=== PATIENT | female | born 1930 | race Hispanic/Latino ===

== ENCOUNTER 2017-01-22 17:35 | Inpatient (IN) | payer MEDICARE, MEDICAID ==
[2017-01-22] MEDS ORDERED: Fentanyl 100 MCG/2 ML VIAL ONE (18:52)
[2017-01-22] MEDS ORDERED: Dextrose 50% Abboject 50 ML SYRINGE SLOW IVP PRN ×3 (19:02→19:07)
[2017-01-22] MEDS ORDERED: Dextrose 5% in Water 1,000 ML IV PRN ×3 (19:02→19:07)
[2017-01-22] MEDS ORDERED: Ondansetron HCl/PF 4 MG/2 ML Vial IVP PRN (19:07)
[2017-01-22] MEDS ORDERED: hydrALAZINE 20 MG/ML VIAL SLOW IVP PRN (19:07)
[2017-01-22] MEDS ORDERED: Acetaminophen 1,000 MG in Premix Bag 1 BAG IVPB SCH (19:15)
[2017-01-22] MEDS ORDERED: diphenhydrAMINE 25 MG CAP PO PRN (21:06)
[2017-01-22] MEDS: Famotidine/PF 20 mg/2ml Vial SLOW IVP SCH (21:10)
--- NOTE | 2017-01-22 21:30 | HP ---
ATTENDING PHYSICIAN: Carlton Ruano M.D. CONSULTING PHYSICIAN: Isidro Ordonez M.D. CHIEF COMPLAINT: Ground level fall with left knee pain. HISTORY OF PRESENT ILLNESS: An 86-year-old female transferred from [place] to [facility] [place] ED for sta tus post ground level fall. She was apparently doing yard work and tripped on a water hose at home, landing on her left side in leg. She denied any other injury and denied LOC. She had a history of a left knee replacement 20 years ago, but does not remember who did it. After falling, she had signif icant left knee pain and was taken to [place], where ED evaluation identified left distal femur frac ture. She was then transferred to [facility] ED. Trauma services has been consulted for admission a nd management. Dr. Ordonez, Orthopedics, has been consulted for management of fractures. She is here in the ED and continues to complain of pain to the left knee with movement. Pain is intensified by movement of the left leg. The pain is relieved with the administration of IV analgesia. She remains neurovascularly intact and hemodynamically stable. PAST MEDICAL HISTORY: Include rheumatoid arthritis, osteoporosis, insomnia, hypertension, and asthma . PAST SURGICAL HISTORY: Includes right ankle, bilateral knee orthopedic surgeries, cholecystectomy, h ysterectomy, and bilateral mastectomy. SOCIAL HISTORY: The patient lives alone at home. She denies alcohol, drug, or tobacco use. CURRENT MEDICATIONS: Include amlodipine 10 mg, dicyclomine 20 mg, baclofen 10 mg, Dexilant 30 mg, an d MiraLax as needed. ALLERGIES: She reports intolerance to ASPIRIN causing GI upset and CODEINE causing nausea. REVIEW OF SYSTEMS: Constitutional: The patient denies chills, fever, weakness, or malaise. HEENT: The patient denies complaint. Cardiovascular: The patient denies chest pain or palpitations. Resp iratory: The patient denies shortness of breath, cough, or any pulmonary insufficiency. Gastrointes tinal: The patient denies abdominal pain, nausea, vomiting, diarrhea. Musculoskeletal: The patient complains of pain at the left thigh and knee. Denies sensory deficit. Denies any other musculoskel etal pain or complaint. Neurologic: Denies headache, weakness, syncope, or seizures. Skin: Denies complaint. PHYSICAL EXAMINATION: VITAL SIGNS: Blood pressure 112/42, pulse 71, respirations 18, O2 sat 93% on room air. CONSTITUTIONAL: Well-developed, well-nourished female, in no acute distress. HEENT: Atraumatic, normocephalic. PULMONARY: Bilateral breath sounds clear. No respiratory distress. CARDIOVASCULAR: Normal rate and rhythm. ABDOMEN: Soft, nontender, nondistended. MUSCULOSKELETAL: Left thigh and knee pain with palpation. Distal pulses intact. EXTREMITIES: Cap refill brisk. All other extremities within normal limits. Neurovascularly intact. NEUROLOGIC: Awake, alert, oriented x3. PSYCHIATRIC: Normal affect, mood, and judgment. ASSESSMENT AND PLAN: 1. An 86-year-old female status post ground level fall. 2. Left distal femur fracture. PLAN: 1. Admit to surgical floor. 2. Clear liquid diet tonight, n.p.o. after midnight. 3. SCDs for DVT prophylaxis. No chemical DVT prophylaxis until cleared by Orthopedic Surgery. 4. IV Tylenol q.[address] hours[address] José Luis bassett, will defer to his recommendations. History, review of systems, physical exam, assessment, and plan were reviewed with Dr. Ruano.
[2017-01-22] MEDS ORDERED: traMADol HCl 50 MG TAB PO PRN (22:55)
[2017-01-22] MEDS: Zolpidem Tartrate 5 MG TAB PO PRN (23:09)
[2017-01-22] MEDS: Ketorolac Tromethamine 30 MG/ML VIAL IVP SCH (23:09)
[2017-01-22] MEDS: Sodium Chloride 0.9% 1,000 ML IV SCH (23:11)
[2017-01-22 23:13] VITALS: BMI 33.0
[2017-01-23] MEDS: Acetaminophen 1,000 MG in Premix Bag 1 BAG IVPB SCH ×5 (04:18→22:16)
[2017-01-23 04:32] LABS: #Lymphocytes 1.3 thou/uL (1.20-3.40); #Monocytes 0.8 thou/uL (0.11-0.59); #Neutrophils 5.4 thou/uL (1.40-6.50); %Eosinophils 0.5 % (0.0-10.0); %Monocytes 10.2 % (0.0-10.0); Hematocrit 29.1 % (36.0-47.0); Mean Platelet Volume 6.9 fL (7.4-10.4); Red Blood Cell (RBC) Count 3.28 mill/uL (4.20-5.40); White Blood Cell (WBC) Count 7.5 thou/uL (4.8-10.8)
[2017-01-23 04:42] LABS: Anion Gap 7 mmol/L (10-20); BUN (Urea Nitrogen) 20 mg/dL (9.8-20.1); Calc. Creatinine Clearance 62 mL/min (70-130); Calcium 8.4 mg/dL (7.8-10.44); Carbon Dioxide 29 mmol/L (23-31); Chloride 106 mmol/L (98-107); Estimated GFR-MDRD 71
[2017-01-23] MEDS: Ketorolac Tromethamine 30 MG/ML VIAL IVP SCH ×4 (06:16→23:53)
[2017-01-23] MEDS ORDERED: CEFAZOLIN/Water 2 GM/20 ML SYRINGE SLOW IVP SCH ×2 (07:30→14:30)
[2017-01-23] MEDS ORDERED: Amlodipine 5 MG TAB PO SCH (09:00)
--- NOTE | 2017-01-23 09:11 | HP ---
REASON FOR ADMISSION: Left femur fracture. HISTORY OF PRESENT ILLNESS: She is a pleasant 86-year-old woman who fell at home just in her yard, t ripped on a hose. She complains of pain in her left femur and was transferred here from [place]. PAST MEDICAL HISTORY: Positive for rheumatoid arthritis, osteoporosis, hypertension. ALLERGIES TO MEDICATIONS: She is allergic to ASPIRIN, which hurts her stomach and CODEINE causes salvatore sea. These are true allegies. SOCIAL HISTORY: She has good family support. She lives alone and walked independently prior to this . PHYSICAL EXAMINATION: GENERAL: Shows a pleasant woman who is in no distress. HEENT: Normocephalic, atraumatic. LUNGS: Clear. HEART: Regular. ABDOMEN: Soft. EXTREMITIES: Left leg shows swelling, tenderness in the distal femur, just a trace palpable pulse di stally, but intact sensation on foot. IMAGING: Radiographs show supracondylar femur fracture above a total knee. DISCUSSION: Discussed with the patient that with her very poor bone quality and very limited bone un derneath the prosthesis, she will probably be nonweightbearing for about 3 months and there was fairl y high chance of nonunion, small risk of infection, blood clots, transfusion, and . She would l dinah to proceed with surgery and gives consent.
[2017-01-23] MEDS: Famotidine/PF 20 mg/2ml Vial SLOW IVP SCH ×2 (09:52→21:39)
[2017-01-23] MEDS: Sodium Chloride 0.9% 1,000 ML IV SCH ×2 (10:17→21:40)
[2017-01-23] MEDS ORDERED: CEFAZOLIN/Water 2 GM/20 ML SYRINGE ONE (11:47)
[2017-01-23] MEDS ORDERED: Ketorolac Tromethamine 30 MG/ML VIAL ONE (11:48)
[2017-01-23] MEDS ORDERED: Fentanyl 100 MCG/2 ML VIAL ONE ×2 (12:53→13:27)
--- NOTE | 2017-01-23 14:32 | OP ---
DATE OF PROCEDURE: 01/23/2017 PREOPERATIVE DIAGNOSIS: Left periprosthetic supracondylar distal femur fracture. POSTOPERATIVE DIAGNOSIS: Left periprosthetic supracondylar distal femur fracture. OPERATIVE PROCEDURE: Open reduction internal fixation, left distal femoral supracondylar metaphyseal fracture. SURGEON: Isidro Ordonez M.D. SURVEY ENGINEER: Miguel Hamilton PA-C. ANESTHESIA: General via endotracheal tube. ESTIMATED BLOOD LOSS: 200 mL. TOURNIQUET TIME: Not used. COMPONENTS USED: Synthes periarticular distal femoral LCP, variable angle LCP locking plate 14-hole. DRAINS: None. SPECIMENS: None. COMPLICATIONS: None. COUNTS: Correct. INDICATIONS FOR SURGERY: Lauren is an 86-year-old female, who had a ground-level fall yester day, was admitted to the hospital with a left periprosthetic supracondylar femur fracture. Our servi ce was consulted for open reduction internal fixation, definitive management of this problem. PROCEDURE IN DETAIL: After informed consent was obtained in the preoperative holding area, the patie brandee was taken to the operative suite where she was appropriately positioned and general anesthesia was induced. An endotracheal tube was placed and secured and then the patient was appropriately positio konrad on the operating table. Left lower extremity was then prepped and draped in the usual sterile fa shion. Prior to incision, time-out was called and all members of the surgical team agreed upon site, surgeon, and patient. After this was completed, fluoroscopy was then brought into the field to guid e surgical exposure. Sharp dissection was carried through the skin, down to the IT band exposing the distal third of the femur and the periprosthetic fracture itself. IT band was incised sharply. T-e levator was then used to expose the lateral aspect of the femur. We chose a 14-hole plate. Fluorosc opy was then used to guide this. Distal locking pin and proximal locking pin were then placed. This was checked in AP and lateral planes. Happy with the reduction and placement. We then went ahead a nd filled, used a conical screw to reduce, and shows approximately 5 fully threaded bicortical screws above the fracture and approximately 6 screws locking distal to the fracture. They were checked in AP and lateral planes. Happy with near anatomic reduction. A little bit of bayoneting and shortenin g was intentionally performed due to concerns over a fibrous nonunion. Rotation was good. The entir e wound was copiously irrigated with normal saline. Primary closure of the band was accomplished wit h running #2 Quill. Subcutaneous layer was closed with running 0 Quill stitch, and stainless steel s taples were used to reapproximate the skin and the poke holes for the proximal screw fixation. A chepe rile dressing was applied. The procedure was terminated without complications. The patient was awak ened in the operative suite, extubated, and taken to recovery room in stable condition.
[2017-01-23] MEDS ORDERED: Ondansetron HCl/PF 4 MG/2 ML Vial IVP PRN (14:33)
[2017-01-23] MEDS ORDERED: Promethazine HCl 25 MG/ML VIAL IM PRN (14:33)
[2017-01-23] MEDS ORDERED: Promethazine HCl 25 MG/ML VIAL SLOW IVP PRN (14:33)
[2017-01-23] MEDS ORDERED: Propofol 200 MG/20 ML VIAL ONE (16:27)
[2017-01-23] MEDS ORDERED: Metoclopramide HCl 10 MG/2 ML VIAL ONE (16:27)
[2017-01-23] MEDS ORDERED: Ondansetron HCl/PF 4 MG/2 ML Vial ONE (16:27)
[2017-01-23] MEDS ORDERED: ePHEDrine/0.9% NaCl/PF SYRINGE 50 mg/10 ml ONE (16:27)
[2017-01-23] MEDS ORDERED: Dexamethasone 20 MG/5 ML VIAL ONE (16:27)
[2017-01-23] MEDS ORDERED: Lidocaine 1% PF 5 ML VIAL ONE (16:27)
[2017-01-23] MEDS ORDERED: Glycopyrrolate 0.2 MG/ML 5 ML SYRINGE ONE (16:27)
[2017-01-23] MEDS ORDERED: PHENYLEPHRINE-NS 100 MCG/ML 10 ML SYRINGE ONE (16:27)
[2017-01-23] MEDS ORDERED: Chloraseptic Spray 180 ml Bottle PO PRN (17:48)
--- NOTE | 2017-01-23 18:15 | EKG ---
Test Reason : PREOP Blood Pressure : / mmHG Vent. Rate : 063 BPM Atrial Rate : 063 BPM P-R Int : 156 ms QRS Dur : 094 ms QT Int : 416 ms P-R-T Axes : 073 044 070 degrees QTc Int : 425 ms Normal sinus rhythm Normal ECG When compared with ECG of 26-NOV-2014 07:32, Premature atrial complexes are no longer Present Criteria for Inferior infarct are no longer Present Confirmed by TOOTIE PEREZ ([id number]) on 01/23/2017 6:15:36 PM Referred By: CHARITO Confirmed By:TOOTIE PEREZ
--- NOTE | 2017-01-23 18:16 | PRG ---
DATE OF SERVICE: 01/23/2017 ATTENDING PHYSICIAN: Dr. Tim Angulo. SUBJECTIVE: The patient is seen postoperatively on the surgical floor. She was in the OR today for ORIF of left distal femoral supracondylar fracture. She says pain is well controlled. Complains of sore throat. OBJECTIVE: GENERAL: Elderly female in no acute distress. HEENT: Normocephalic, atraumatic. CARDIOVASCULAR: Regular rate and rhythm. PULMONARY: Bilateral breath sounds. Clear to auscultation. ABDOMEN: Soft, nontender, nondistended. EXTREMITIES: Right leg with an Sunil wrap and knee immobilizer. Cap refill brisk in all extremities. Neurovascular intact all extremities. NEUROLOGIC: Awake, alert, oriented x3. GCS is 15. PSYCHIATRIC: Normal mood, affect and judgment. ASSESSMENT: 1. An 86-year-old female status post ground-level fall. 2. Left distal femur fracture. 3. Open reduction internal fixation of left femoral fracture. PLAN: 1. Begin mobilization in a.m. with physical and occupational therapy. 2. Regular diet. 3. Lovenox when cleared by Orthopedic Service. 4. Transition to oral analgesia. 5. Chloraseptic spray for sore throat, likely due to endotracheal intubation. 6. Monitor serial blood pressures. May need to lower home dosage of amlodipine. History, review of systems, physical exam, assessment and plan were reviewed with Dr. Angulo.
[2017-01-23] MEDS ORDERED: PROVENTIL INHALER 6.7 G (200 INHALATIONS) INH PRN (18:32)
[2017-01-23] MEDS: CEFAZOLIN/Water 2 GM/20 ML SYRINGE SLOW IVP SCH (21:41)
[2017-01-23] MEDS: traMADol HCl 50 MG TAB PO PRN (22:14)
[2017-01-23] MEDS: Zolpidem Tartrate 5 MG TAB PO PRN (23:54)
[2017-01-24] MEDS: Ketorolac Tromethamine 30 MG/ML VIAL IVP SCH (05:52)
[2017-01-24] MEDS: CEFAZOLIN/Water 2 GM/20 ML SYRINGE SLOW IVP SCH ×2 (05:53→13:13)
[2017-01-24] MEDS: Sodium Chloride 0.9% 1,000 ML IV SCH ×2 (06:08→17:07)
[2017-01-24] MEDS: Mometasone/Formoterol 120 PUFF INHALER INH SCH ×2 (07:54→23:38)
[2017-01-24] MEDS: traMADol HCl 50 MG TAB PO PRN ×2 (09:33→17:51)
[2017-01-24] MEDS ORDERED: Ibuprofen 800 MG TAB PO SCH (14:00)
[2017-01-24] MEDS: Ibuprofen 600 MG TAB PO SCH ×2 (14:45→22:03)
--- NOTE | 2017-01-24 18:21 | PRG ---
DATE OF SERVICE: 01/24/2017 SUBJECTIVE: The patient is hospital day #3, postop day #1, status post ground level fall where she s ustained a left distal femur fracture for which she has undergone ORIF by orthopedics. The patient h as been working with physical and occupational therapy and originally requested to be discharged home when possible with home health. After further discussions with her and the family, the patient was agreeable to going to a swing bed facility in [place]. OBJECTIVE: VITAL SIGNS: Temperature is 97.5, heart rate is 66, respirations 16, blood pressure 149/78 and oxyge n saturation is 100% on 2 liters via nasal cannula. GENERAL: The patient is resting comfortably in bed. She is alert and oriented and is reported to be at baseline. HEENT: Unremarkable. LUNGS: Clear to auscultation bilaterally. HEART: Regular rate and rhythm. ABDOMEN: Soft, flat and nontender with active bowel sounds. EXTREMITIES: Neurovascularly intact x4. Her postop dressing is clean, dry and intact. The patient is currently wearing a knee immobilizer. ASSESSMENT AND PLAN: 1. Status post ground level fall. 2. Left distal femur fracture, status post open reduction and internal fixation. Plan will be to continue physical and occupational therapy and await placement decision. The patient was evaluated and examined with Dr. Angulo this morning during rounds.
[2017-01-24] MEDS: Zolpidem Tartrate 5 MG TAB PO PRN (22:03)
[2017-01-24] MEDS: Acetaminophen 1,000 MG in Premix Bag 1 BAG IVPB SCH (23:41)
[2017-01-25 05:27] LABS: #Basophils 0.1 thou/uL (0.0-0.2); #Eosinphils 0.2 thou/uL (0.0-0.7); #Lymphocytes 1.4 thou/uL (1.20-3.40); #Monocytes 0.6 thou/uL (0.11-0.59); #Neutrophils 5.2 thou/uL (1.40-6.50); %Basophils 0.8 % (0.0-1.0); %Eosinophils 3.2 % (0.0-10.0); %Lymphocytes 19.1 % (21.0-51.0); %Monocytes 8.1 % (0.0-10.0); Hematocrit 24.1 % (36.0-47.0); Mean Platelet Volume 6.8 fL (7.4-10.4); Red Blood Cell (RBC) Count 2.72 mill/uL (4.20-5.40); White Blood Cell (WBC) Count 7.5 thou/uL (4.8-10.8)
[2017-01-25 05:43] LABS: Anion Gap 8 mmol/L (10-20); BUN (Urea Nitrogen) 8 mg/dL (9.8-20.1); Calc. Creatinine Clearance 67 mL/min (70-130); Calcium 8.2 mg/dL (7.8-10.44); Carbon Dioxide 30 mmol/L (23-31); Chloride 104 mmol/L (98-107); Estimated GFR-MDRD 78; Magnesium 1.7 mg/dL (1.6-2.6); Phosphorus 2.1 mg/dL (2.3-4.7)
[2017-01-25] MEDS: Ibuprofen 600 MG TAB PO SCH (06:03)
[2017-01-25] MEDS ORDERED: Magnesium Sulfate 3 GM in Sodium Chloride 0.9% 100 ML IVPB SCH (07:00)
[2017-01-25] MEDS ORDERED: Potassium Phosphate 30 MMOL in Sodium Chloride 0.9% 500 ML IVPB SCH (07:00)
[2017-01-25] MEDS ORDERED: Potassium Phosphate 30 MMOL in Sodium Chloride 0.9% 250 ML 250 ML IVPB SCH (08:30)
[2017-01-25] MEDS ORDERED: Senokot S 8.6-50 MG TAB PO SCH (09:00)
[2017-01-25] MEDS: Mometasone/Formoterol 120 PUFF INHALER INH SCH (10:30)
[2017-01-25 12:02] VITALS: BP 169/72; TEMP 99.3
--- NOTE | 2017-01-25 14:49 | RAD ---
LEFT FEMUR TWO VIEWS 01/25/17 HISTORY: 86-year-old female status post metal plate and screw placement for comminuted distal femoral fracture . Eight portable fluoroscopic spot images are presented for interpretation. Status post total knee arth roplasty. A elongated extended metal plate and screws is placed involving the entire femoral shaft fr om the subtrochanteric region down to the distal femoral condylar region with resultant improvement i n position and alignment of the extensively comminuted displaced distal femoral fracture. IMPRESSION: Metal plate and screws stabilizing the femoral shaft and distal femoral comminuted fracture. POS: SONYA
--- NOTE | 2017-01-25 19:26 | DIS ---
DATE OF ADMISSION: 01/22/2017 DATE OF DISCHARGE: 01/25/2017 ADMISSION DIAGNOSES: 1. Status post ground level fall. 2. Left distal femur fracture. CONSULTATION: Orthopedics, Dr. Ordonez. PROCEDURES: Open reduction internal fixation of left distal femur fracture. SUMMARY: The patient is an 86-year-old woman, who reportedly tripped at home while doing yard work a nd fell over a hose and landing on her left side. The patient was brought to the emergency room [facility] [place] where she underwent evaluation, examination, and was noted to have the above injuri es. She was subsequently transferred here for orthopedic evaluation and trauma admission. The patie nt would undergo her above procedures. She tolerated this well. She would began working with physic al and occupational therapy and would eventually be transferred to the swing bed facility in [place] to continue her physical and occupational therapy closer to home. At the time of discharge, the pat iebrandee was still needing considerable help, working with physical therapy, she was tolerating a diet an d her pain was controlled. The patient will follow up with Orthopedics in 10 days or sooner as susan smith
== END 2017-01-25 12:15 | DRG 481 ==
LOC: ERS 17:35 → SURG B 18:30
PROVIDERS: ADMIT Surgery; ATTEND Surgery
PROC: 0QSC04Z Reposition Left Lower Femur with Internal Fixation Device, Open Approach (ICD-10-PCS; principal; 2017-01-23)
PROC: 8E0YXBF Computer Assisted Procedure of Lower Extremity, With Fluoroscopy (ICD-10-PCS; 2017-01-23)
DX: S72.452A Displaced supracondylar fracture without intracondylar extension of lower end of left femur, initial encounter for closed fracture (principal); M97.12XA Periprosthetic fracture around internal prosthetic left knee joint, initial encounter; M06.9 Rheumatoid arthritis, unspecified; I10 Essential (primary) hypertension; M81.0 Age-related osteoporosis without current pathological fracture; Z88.5 Allergy status to narcotic agent; Z88.8 Allergy status to other drugs, medicaments and biological substances; W19.XXXA Unspecified fall, initial encounter; Y92.008 Other place in unspecified non-institutional (private) residence as the place of occurrence of the external cause
CPT/HCPCS: 36415; 76001; 80048; 83735; 84100; 85025; 93005; 93010; 96374; C1713; C1769; G0390; G8978-GP-CL; G8979-GP-CK; G8987-GO-CK; G8988-GO-CJ; J0131; J1100; J1885; J2001; J2405; J2704; J2765; J3010; J3475; J7050; S0028

== ENCOUNTER 2018-06-15 16:59 | Observation (INO) | payer MEDICAID, MEDICARE, OTHER ==
[2018-06-15] MEDS ORDERED: Ondansetron ODT 4 MG TAB SL PRN (20:05)
[2018-06-15] MEDS ORDERED: Ondansetron PF 4 MG/2 ML Vial IVP PRN (20:05)
[2018-06-15] MEDS ORDERED: Acetaminophen 325 MG TAB PO PRN (20:05)
[2018-06-15] MEDS ORDERED: Senokot S 8.6-50 MG TAB PO PRN (21:57)
[2018-06-15] MEDS ORDERED: PROVENTIL INHALER 6.7 G (200 INHALATIONS) INH PRN (22:17)
[2018-06-15] MEDS ORDERED: Mometasone/Formoterol 120 PUFF INHALER INH SCH (22:45)
[2018-06-15] MEDS ORDERED: Polyethylene Glycol 3350 17 GM Packet PO SCH (22:45)
[2018-06-15] MEDS ORDERED: Baclofen 10 MG TAB PO SCH (22:45)
[2018-06-15] MEDS ORDERED: Famotidine 20 MG TAB PO SCH (22:45)
[2018-06-15] MEDS ORDERED: traZODone HCl 50 MG TAB PO SCH (22:45)
[2018-06-15] MEDS ORDERED: Dicyclomine 20 MG TAB PO SCH (22:45)
[2018-06-15 22:54] VITALS: BMI 29.2
--- NOTE | 2018-06-16 02:25 | HP ---
PRIMARY CARE PROVIDER: Dr. Norris. CHIEF COMPLAINT: Chest pain. HISTORY OF PRESENT ILLNESS: Ms. Marshall is an 88-year-old female, who presented to the emergency room at [facility] for chest pain, which started yesterday. Reports that she had pain on both sides of her chest and epigastric pain. She reports shortness of breath, reports nausea. Denies any vomiting. Reports that she has been passing a lot of flatus since last night. EKG in the emergency room showed normal sinus rhythm, beats per minute 68, premature supraventricular complexes, incomplete right bundle branch block, ST segments, normal T-waves, normal axis is left. Reports that her last cardiac workup was 8 or 9 years ago. Denies any history of coronary artery disease. Does have pertinent medical history for hypertension, emphysema. Initial troponin undetectable. Workup basically benign at [facility], but because of age and risk factors, was sent to [facility] where she was admitted to the observation unit for further management. Records show the patient had a stress test in 2013, which showed an EF of 66% and a normal myocardial perfusion scan. PAST MEDICAL HISTORY: Pertinent for history of skin cancer treated with surgery, rheumatoid arthritis, osteoporosis, insomnia, hypertension, emphysema. PAST SURGICAL HISTORY: Bilateral knee replacements, bilateral cataracts, cholecystectomy, hysterectomy, bilateral mastectomy. PSYCHIATRIC HISTORY: Includes depression. SOCIAL HISTORY: Denies any alcohol, drug or smoking history. Lives at home by herself. ALLERGIES: ASPIRIN, WHICH CAUSES SOME NAUSEA. CURRENT MEDICATIONS: 1. Baclofen 10 mg p.o. t.i.d. 2. Budesonide formoterol 2 puffs b.i.d., 160 mcg/4.5. 3. Dexilant 30 mg p.o. daily. 4. Bentyl 20 mg p.o. q.i.d. 5. MiraLAX 17 g p.o. at bedtime. 6. Trazodone 50 mg p.o. at bedtime. 7. Ventolin inhaler 60 puffs two puffs q.4 hours as needed. 8. Norvasc 10 mg p.o. daily. REVIEW OF SYSTEMS: The patient reports chest pain, radiates to epigastric region, currently much improved. Does report some nausea. Denies vomiting. Reports some shortness of breath. Reports a lot of gas, which has improved. Denies any current abdomen pain, vomiting, diarrhea, constipation. All other systems are reviewed and are negative unless mentioned in the HPI. PHYSICAL EXAMINATION: VITAL SIGNS: Blood pressure is 146/69, pulse is 73, respirations are 16, pO2 sats are 96% on room air, temp is 98.5. CONSTITUTIONAL: The patient appears nontoxic, appears pain free, is alert and oriented to person, place, and time. HEENT: Head is atraumatic and normocephalic. Eyes; eyelids are normal to inspection. Extraocular muscles are intact. ENT: Mouth exam is normal. Mucous membranes are moist. NECK: Normal range of motion. Trachea is midline. RESPIRATORY: Chest breath sounds are clear. Chest movement is symmetrical. CARDIOVASCULAR: Regular heart rate and rhythm. Heart sounds are normal. ABDOMEN: Nontender abdomen. Bowel sounds are heard. BACK: Normal range of motion. Back exam is normal. EXTREMITIES: Upper extremities normal range of motion. Strength is normal. Radial pulses equal bilaterally. Lower extremity normal range of motion. Strength is normal. Left lower extremity is slightly larger than right lower extremity. The patient reports this is chronic. There is no edema. NEUROLOGIC: Oriented to person, place, and time. Speech is normal. SKIN: Warm, dry and normal in color. PERTINENT LABS: White blood cell count is 6.1, hemoglobin is 12.0, hematocrit is 38.2, platelet is 267. PT is not tested. Sodium is 138, potassium is 3.7, chloride is 101, carbon dioxide is 29, gap is 12, BUN is 12, GFR 57, creatinine is 0.93, glucose is 127, calcium is 9.4, troponin x2 are undetectable. Liver enzymes are unremarkable. ASSESSMENT AND PLAN: 1. Chest pain. We will continue to trend troponins, stress test, Cardiolite in the morning. We will check lipids, thyroid stimulating hormone. 2. Hypertension. We will continue home medications. We will trend. 3. Emphysema. We will continue home medications, appears stable. 4. Gastrointestinal and deep venous thrombosis prophylaxis have been started. 5. Hospital course is dependent on clinical findings. Job ID: [id number]
[2018-06-16 05:21] LABS: #Eosinphils 0.2 thou/uL (0.0-0.7); #Lymphocytes 1.6 thou/uL (1.20-3.40); #Monocytes 0.5 thou/uL (0.11-0.59); #Neutrophils 2.7 thou/uL (1.40-6.50); %Basophils 0.5 % (0.0-1.0); %Lymphocytes 31.1 % (21.0-51.0); %Monocytes 10.1 % (0.0-10.0); %Neutrophils 54.2 % (42.0-75.0); Hemoglobin 10.4 g/dL (12.0-16.0); Mean Corpuscular HGB CONC 32.3 g/dL (32.0-36.0); Mean Corpuscular Hemoglobin 27.8 pg (27.0-31.0); Mean Corpuscular Volume 86.2 fL (78.0-98.0); Mean Platelet Volume 7.1 fL (7.4-10.4); Platelet Count 215 thou/uL (130-400); Red Blood Cell (RBC) Count 3.76 mill/uL (4.20-5.40); White Blood Cell (WBC) Count 5.1 thou/uL (4.8-10.8)
[2018-06-16 05:55] LABS: ALT (SGPT) 11 U/L (8-55); AST (SGOT) 13 U/L (5-34); Albumin 3.4 g/dL (3.4-4.8); Alkaline Phosphatase 81 U/L (40-150); BUN (Urea Nitrogen) 12 mg/dL (9.8-20.1); Bilirubin, Total 0.6 mg/dL (0.2-1.2); Calc. Creatinine Clearance 58 mL/min (70-130); Calcium 8.6 mg/dL (7.8-10.44); Carbon Dioxide 27 mmol/L (23-31); Cardiac Risk 2.4 (Less than 4.5); Chloride 108 mmol/L (98-107); Cholesterol 130 mg/dl (< 200 Desired); Estimated GFR-MDRD 70; Globulin 2.4 g/dL (2.4-3.5); Glucose 97 mg/dL (83-110); HDL Cholesterol 54 mg/dL (>60 Neg Risk); LDL Cholesterol, Calculated 66 mg/dL; Potassium 3.6 mmol/L (3.5-5.1); Protein, Total 5.8 g/dL (6.0-8.3); Sodium 139 mmol/L (136-145); Triglycerides 50 mg/dL (Less than 150)
[2018-06-16 05:59] LABS: Anion Gap 8 mmol/L (10-20)
[2018-06-16] MEDS: Mometasone/Formoterol 120 PUFF INHALER INH SCH ×2 (07:06→18:03)
[2018-06-16] MEDS ORDERED: Regadenoson 0.4 MG/5 ML SYRINGE ONE (08:24)
[2018-06-16] MEDS ORDERED: Non-Formulary Item 1 EACH (Budesonide-Formoterol [Symbicort 160-4.5] 2 PUFF) INH SCH (09:00)
[2018-06-16] MEDS ORDERED: Famotidine 20 MG TAB PO SCH (09:00)
[2018-06-16] MEDS: Dicyclomine 20 MG TAB PO SCH ×4 (09:05→21:47)
[2018-06-16] MEDS: Amlodipine 10 MG TAB PO SCH ×2 (09:05→13:41)
[2018-06-16] MEDS: Baclofen 10 MG TAB PO SCH ×3 (09:05→21:47)
[2018-06-16] MEDS: Enoxaparin Sodium 40 MG/0.4 ML SYRINGE SC SCH (09:06)
[2018-06-16] MEDS ORDERED: ISOVUE-370 76%-LOCM 1 ML ONE (11:40)
--- NOTE | 2018-06-16 15:40 | NM ---
MYOCARDIAL PERFUSION SCAN: The patient was given 9 mCi of technetium sestamibi for rest imaging and 33 mCi for stress imaging. INDICATION: Chest pain. Patient was stressed according to Lexiscan protocol. FINDINGS: Normal activity throughout the left ventricle is seen on stress and rest images. No evidence of rever sible ischemia. Wall motion appears normal. Ejection fraction is recorded at 74%. IMPRESSION: No evidence of reversible ischemia. POS: OFF
[2018-06-16] MEDS ORDERED: Lidocaine 2% Viscous Solution 10 ML, Aluminum & Magnesium Hydroxide 30 ML SSW SCH (16:30)
--- NOTE | 2018-06-16 18:37 | PDOC.PN ---
- Subjective Encounter Start Date: 06/16/18 Encounter Start Time: 18:36 Pt seen for followup re: chest pain. Denies chest pain. - Objective MAR Reviewed: Yes Vital Signs & Weight: Vital Signs (12 hours) Temp Pulse Resp BP Pulse Ox 06/16/18 18:03 68 16 96 06/16/18 15:45 98.5 F 73 16 118/58 L 97 06/16/18 12:18 97.9 F 67 18 148/61 H 97 06/16/18 07:48 98 F 66 18 125/62 97 Weight Weight 165 lb 4.8 oz I&O: 06/15/18 06/16/18 06/17/18 06:59 06:59 06:59 Intake Total 480 840 Output Total 700 Balance -220 840 Result Diagrams: 06/16/18 04:45 06/16/18 04:45 EKG Reviewed by me: Yes (Tele: NSR) Phys Exam - Physical Examination Constitutional: NAD HEENT: moist MMs Neck: supple Respiratory: clear to auscultation bilateral Cardiovascular: RRR Gastrointestinal: soft Neurological: moves all 4 limbs Psychiatric: normal affect Dx/Plan (1) Chest pain Code(s): R07.9 - CHEST PAIN, UNSPECIFIED Status: Acute Comment: Improved (2) GERD (gastroesophageal reflux disease) Code(s): K21.9 - GASTRO-ESOPHAGEAL REFLUX DISEASE WITHOUT ESOPHAGITIS Status: Chronic Comment: pt's chest pain most likely secondary to acid reflux. Trial GI cocktail. (3) Hypertension Code(s): I10 - ESSENTIAL (PRIMARY) HYPERTENSION Status: Chronic Comment: controlled - Plan * . Review of Systems - Review of Systems Cardiovascular: negative: chest pain, palpitations, orthopnea, paroxysmal nocturnal dyspnea, edema, light headedness Gastrointestinal: negative: Nausea, Vomiting, Abdominal Pain, Diarrhea, Constipation, Melena, Hematochezia Genitourinary: negative: Dysuria, Frequency, Incontinence, Hematuria, Retention - Medications/Allergies Allergies/Adverse Reactions: Allergies Allergy/AdvReac Type Severity Reaction Status Date / Time aspirin AdvReac Mild STOMACHE Verified 06/15/18 23:02 ACHE Medications: Current Medications Albuterol Sulfate (Proventil Hfa) 2 puff INH Q4HR PRN PRN Reason: SOB &/or Wheezing Amlodipine Besylate (Norvasc) 10 mg PO DAILY [facility] Last Admin: 06/16/18 13:41 Dose: 10 mg Baclofen (Lioresal) 10 mg PO TID [facility] Last Admin: 06/16/18 13:41 Dose: 10 mg Dicyclomine HCl (Bentyl) 20 mg PO QID [facility] Last Admin: 06/16/18 17:05 Dose: 20 mg Enoxaparin Sodium (Lovenox) 40 mg SC 0900 [facility] Last Admin: 06/16/18 09:06 Dose: Not Given Mometasone Furoate/Formoterol Fumar (Dulera 200 Mcg/5 Mcg Inhaler) 2 puff INH BID-RT [facility] Last Admin: 06/16/18 18:03 Dose: 2 puff Pantoprazole Sodium (Protonix) 40 mg PO DAILY [facility] Last Admin: 06/16/18 13:41 Dose: 40 mg Polyethylene Glycol (Miralax) 17 gm PO [facility] Senna/Docusate Sodium (Senokot S) 2 tab PO BID PRN PRN Reason: Constipation Sodium Chloride (Flush - Normal Saline) 10 ml IVF PRN PRN PRN Reason: Saline Flush Trazodone HCl (Desyrel) 50 mg PO [facility]
[2018-06-16] MEDS ORDERED: Polyethylene Glycol 3350 17 GM Packet PO SCH (21:00)
[2018-06-16] MEDS ORDERED: traZODone HCl 50 MG TAB PO SCH (21:00)
--- NOTE | 2018-06-16 22:44 | CT ---
CT PULMONARY ANGIOGRAM WITH IV CONTRAST AND 3D POSTPROCESSIN06/16/18 HISTORY: Shortness of breath and chest pain. FINDINGS: There is good contrast opacification of the pulmonary artery vasculature without filling defects to s uggest pulmonary embolism. The thoracic aorta is well opacified without aneurysmal dissection. No pl eural or pericardial effusions are seen. No pneumothoraces, focal areas of consolidation lung bases o r pulmonary nodules are identified. There are degenerative changes in the spine. Upper abdominal aleyda grams demonstrate changes of cholecystectomy. Liver and renal cysts. IMPRESSION: No CT evidence of pulmonary embolism. POS: SONYA
[2018-06-17] MEDS: Enoxaparin Sodium 40 MG/0.4 ML SYRINGE SC SCH (08:01)
[2018-06-17] MEDS: Baclofen 10 MG TAB PO SCH (08:01)
[2018-06-17] MEDS: Dicyclomine 20 MG TAB PO SCH (08:01)
[2018-06-17] MEDS: Amlodipine 10 MG TAB PO SCH (08:01)
[2018-06-17 08:21] VITALS: BP 158/69; TEMP 98.1
[2018-06-17] MEDS: Mometasone/Formoterol 120 PUFF INHALER INH SCH (08:57)
--- NOTE | 2018-06-17 20:38 | DIS ---
DATE OF ADMISSION: 06/15/2018 DATE OF DISCHARGE: 06/17/2018 PRIMARY CARE PROVIDER: Dr. Asha Norris. DISCHARGE DIAGNOSES: 1. Chest pain. 2. Most likely gastroesophageal reflux disease as the etiology for chest pain. CONDITION OF PATIENT ON THE DAY OF DISCHARGE: Stable. I assessed Ms. Marshall on the day of discharge. She reports that chest pain has resolved. Vital signs are stable. S1 and S2 are heard, regular. Lungs are clear to auscultation bilaterally. DISCHARGE MEDICATIONS: No change was made to her pre-admission home medications as dictated by Ms. Terry on history and physical note dated 06/15/2018. HOSPITAL COURSE: Ms. Marshall is a pleasant 88-year-old lady, who was admitted to [facility] on 06/15/2018, for chest pain. She had a nuclear stress test, which did not show any evidence of reversible ischemia. Left ventricular ejection fraction was 74%. CT angiogram of the chest did not show any evidence of pulmonary embolism. She did have liver and renal cysts on the CAT scan. Her chest pain was described as a burning sensation that originates in the epigastric region and radiates into the retrosternal region. It improved with a trial of GI cocktail. She has been advised to take Maalox p.r.n. as directed. Many thanks for allowing me to participate in your patient's care. Please feel free to contact me with any questions or concerns. She had a normal TSH during this hospitalization. Fasting lipid profile showed triglycerides 50, cholesterol 130, LDL cholesterol 66, and HDL cholesterol 54. DISCHARGE DESTINATION: Home. Job ID: [id number]
== END 2018-06-17 12:26 | disposition home or self-care (01) ==
LOC: ERS 16:59 → 2SW 18:04
PROVIDERS: ADMIT Emergency Medicine; ATTEND Emergency Medicine
DX: R07.9 Chest pain, unspecified (principal); R10.13 Epigastric pain; R06.02 Shortness of breath; R11.0 Nausea; I10 Essential (primary) hypertension; J43.9 Emphysema, unspecified; M81.0 Age-related osteoporosis without current pathological fracture; G47.00 Insomnia, unspecified; F32.9 Major depressive disorder, single episode, unspecified; K21.9 Gastro-esophageal reflux disease without esophagitis; Z79.899 Other long term (current) drug therapy; Z88.8 Allergy status to other drugs, medicaments and biological substances; Z79.51 Long term (current) use of inhaled steroids
CPT/HCPCS: 36415; 71275; 78452; 80053; 80061; 84443; 85025; 85379; 93005; 93017; 94760; 96372; A9500; G0378; J1650; J2785; Q9966